=== PATIENT | male | born 1970 | race Caucasian/White ===

== ENCOUNTER 2020-03-02 15:15 | Emergency (ER) | payer OTHER, SELFPAY ==
[2020-03-02 15:18] VITALS: BP 140/78; PULSE 71; RESP 16; TEMP 36.6; O2SAT 95; BMI 28.5
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
--- NOTE | 2020-03-02 15:39 | RAD_ITS ---
STUDY: X-RAY - RIGHT FOOT CLINICAL: Male, 49 years old. Right foot pain TECHNIQUE: 3 view(s) of the foot. COMPARISON: None. FINDINGS: No fracture or dislocation. The joint spaces are maintained. Small calcaneal spurs. The soft tissue structures are unremarkable. RAD/Foot min 3 Views IMPRESSION: No fracture or dislocation. Small calcaneal spurs. Electronically Signed: Gerard Shah, at 16:37 EDT Tel , Service support ,
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
== END 2020-03-02 17:01 | disposition home or self-care (01) ==
LOC: ED 16:25
PROVIDERS: Emergency Provider Emergency Medicine
DX: S16.1XXA Strain of muscle, fascia and tendon at neck level, initial encounter (principal); S39.012A Strain of muscle, fascia and tendon of lower back, initial encounter; S90.31XA Contusion of right foot, initial encounter; V89.2XXA Person injured in unspecified motor-vehicle accident, traffic, initial encounter; Y93.9 Activity, unspecified; Y92.9 Unspecified place or not applicable; Y99.9 Unspecified external cause status; Z79.82 Long term (current) use of aspirin
CPT/HCPCS: 72040; 72100; 73630; 99282